=== PATIENT | female | born 1950 | race Caucasian/White ===

== ENCOUNTER 2018-11-12 13:29 | Emergency (ER) | END 2018-11-12 15:29 | disposition home or self-care (01) ==

== ENCOUNTER 2019-04-21 11:40 | Emergency (ER) | payer OTHER ==
[~2019-04-21] VITALS: Ht 160 cm; Wt 77.2 kg
[~2019-04-21 11:40] MED LIST: AMLO5TAB4 PO; ASPI-903 PO; CLON-379 PO; GABA300C16 PO; IBUP-1542 PO; LISI10TA2 PO; METF500T PO; NOVO3I SC; PANT40TA3 PO; TRAM50TA2 PO; TYL500 PO
[2019-04-21 11:44] VITALS: Ht 160 cm; Wt 77.2 kg
[2019-04-21] MEDS ORDERED: SOD CHLORIDE 0.9% 1,000 ML IV STA (12:35)
[2019-04-21] MEDS ORDERED: MAGNESIUM CITRATE 300 ML BTL PO ONE (13:00)
[2019-04-21] MEDS ORDERED: LORA10TA3 PO (13:08)
[2019-04-21] MEDS ORDERED: INSU100I33 SC (13:11)
[2019-04-21] MEDS ORDERED: INSU100C SQ (13:11)
[2019-04-21] MEDS ORDERED: CHOL100062 PO (13:11)
[2019-04-21] MEDS ORDERED: PANT40TA4 PO (13:13)
[2019-04-21] MEDS ORDERED: ATOR20TA38 PO (13:13)
[2019-04-21] MEDS ORDERED: LOSA50TA14 PO (13:13)
[2019-04-21] MEDS ORDERED: AMLO-147 PO (13:14)
[2019-04-21] MEDS ORDERED: METF100010 PO (13:14)
[2019-04-21] MEDS ORDERED: ASPI-817 PO (13:15)
[2019-04-21] MEDS ORDERED: KETOROLAC 15 MG INJ IV STA (13:48)
[2019-04-21] MEDS ORDERED: MAGN296S40 PO (14:31)
[2019-04-21] MEDS ORDERED: GLYC1SUP92 PR (14:31)
--- NOTE | 2019-04-21 14:37 | ERD ---
ER Documentation Chief Complaint Chief Complaint abd pain , constipation , lt arm and leg numbness x 2 weeks HPI This is a 68-year-old female presents with a family member. The patient has a multitude of different complaints. Her main complaint is constipation for approximately 2 weeks. The patient has had intermittent paresthesias of her left arm and left leg for approximately 2 weeks. Patient denies any headache or vision changes, no slurred speech chest pain or shortness of breath. Again her main complaint today is constipation despite the use of Dulcolax she is only able to pass small amounts of stool. No blood in the stool. She denies any weight loss. Mild abdominal cramping with diarrhea that is alleviated with bowel movement. ROS All systems reviewed and are negative except as per history of present illness. Medications Home Meds Active Scripts Magnesium Citrate* (Magnesium Citrate*) 296 Ml Solution, 296 ML PO ONCE PRN for CONSTIPATION, #1 BOTTLE Prov:MAYUR GUNTER MD 04/21/19 Glycerin* (Glycerin (Adult)*) 1 Each Supp.rect, 1 EACH NM DAILY PRN for CONSTIPATION, #10 SUPP.RECT Prov:MAYUR GUNTER MD 04/21/19 Reported Medications Aspirin* (Aspirin* EC) 81 Mg Tablet., 81 MG PO DAILY, TAB 04/21/19 Metformin Hcl* (Metformin Hcl*) 1,000 Mg Tablet, 1000 MG PO WITH BREAKFAST DINNE, #60 TAB 04/21/19 Amlodipine Besylate* (Amlodipine Besylate*) 10 Mg Tablet, 10 MG PO DAILY, #30 TAB 04/21/19 Atorvastatin Calcium* (Atorvastatin Calcium*) 20 Mg Tablet, 20 MG PO QHS, #30 TAB 04/21/19 Losartan Potassium* (Losartan Potassium*) 50 Mg Tablet, 50 MG PO DAILY, TAB 04/21/19 Pantoprazole* (Pantoprazole*) 40 Mg Tablet., 40 MG PO AC BREAKFAST, TAB 04/21/19 Cholecalciferol* (Vitamin D3*) 1,000 Unit Tablet, 1000 UNIT PO DAILY, TAB 04/21/19 Insulin Lispro (Humalog) 100 Unit/1 Ml Cartridge, 14 UNIT SQ QPM, EA 04/21/19 Insulin Glargine,Hum.rec.anlog (Basaglar Kwikpen U-100) 100 Unit/1 Ml Insuln.pen, 14 UNIT SC QAM, EA 04/21/19 Loratadine* (Loratadine*) 10 Mg Tablet, 10 MG PO DAILY, #30 TAB 04/21/19 Discontinued Reported Medications Aspirin* (Aspirin* Chew) 81 Mg Tab.chew, 81 MG PO DAILY, TAB.CHEW 11/12/18 Gabapentin* (Gabapentin*) 300 Mg Capsule, 300 MG PO QHS, #60 CAP 11/12/18 Amlodipine Besylate* (Norvasc*) 5 Mg Tablet, 5 MG PO DAILY, TAB 11/12/18 Discontinued Scripts Ibuprofen* (Motrin*) 600 Mg Tab, 600 MG PO Q6H PRN for PAIN AND OR ELEVATED TEMP, #30 TAB Prov:OLIVERIO LOWE MD 11/12/18 Tramadol HCl (Tramadol HCl) 50 Mg Tablet, 50 MG PO Q4 PRN for PAIN, #20 TAB Prov:MARK ALLISON MD 08/22/16 Acetaminophen* (Tylenol*) 500 Mg Tab, 500 MG PO Q4H PRN for MILD PAIN LEVEL 1-3, #14 TAB Prov:MARK ALLISON MD 12/25/15 Pantoprazole* (Protonix*) 40 Mg Tablet.dr, 40 MG PO DAILY, #30 TAB Prov:OLIVERIO LOWE MD 11/25/15 Insulin Aspart* (Novolog Insulin Pen*) 100 Unit/Ml Soln, 4 UNIT SC AC MEALS for 30 Days Prov:JOANN VASQUEZ NP 08/22/15 Clonidine Hcl* (Clonidine Hcl*) 0.1 Mg Tab, 0.1 MG PO Q4H PRN for sbp>160, #30 TAB Prov:JOANN VASQUEZ NP 08/22/15 Insulin Aspart* (Novolog Insulin Pen*) 100 Unit/Ml Soln, 0 UNIT SC AC MEALS AND BEDTIME for 30 Days Prov:JOANN VASQUEZ NP 08/22/15 Metformin Hcl (Glucophage) 500 Mg Tab, 500 MG PO AC BREAKFAST DINNER for 30 Days Prov:JOANN VASQUEZ NP 08/22/15 Lisinopril* (Lisinopril*) 10 Mg Tablet, 10 MG PO BID for 30 Days, TAB Prov:JOANN VASQUEZ NP 08/22/15 Allergies Allergies: Coded Allergies: No Known Drug Allergies (Verified Allergy, Mild, 5/29/19) PMhx/Soc History of Surgery: No Anesthesia Reaction: No Hx Neurological Disorder: No Hx Respiratory Disorders: No Hx Cardiac Disorders: Yes (HTN) Hx Psychiatric Problems: No Hx Miscellaneous Medical Probl: Yes (DM) Hx Alcohol Use: No Hx Substance Use: No Hx Tobacco Use: No Smoking Status: Never smoker FmHx Family History: diabetes Physical Exam Vitals Vital Signs Date Temp Pulse Resp B/P (MAP) Pulse Ox O2 O2 Flow FiO2 Time Delivery Rate 04/21/19 98.1 79 18 151/79 99 11:44 (103) Physical Exam General: Well developed, well nourished, no acute distress Head: Normocephalic, atraumatic. Eyes: Pupils equally reactive, EOM intact ENT: Moist mucous membranes Neck: Supple, no lymphadenopathy Respiratory: Lungs clear bilaterally, no distress Cardiovascular: RRR, no murmurs, rubs, or gallops Abdominal: Soft, non-tender, non-distended, no peritoneal signs : Deferred MSK: No edema, no unilateral swelling, 5/5 strength Neurologic: Alert and oriented, moving all extremities, normal speech, no focal weakness, no cerebellar signs Skin: No rash Psych: Normal mood Result Diagram: 04/21/19 1242 04/21/19 1242 Results 24 hrs Laboratory Tests Test 04/21/19 12:42 04/21/19 12:46 White Blood Count 7.8 10^3/ul Red Blood Count 4.08 10^6/ul Hemoglobin 11.2 g/dl Hematocrit 34.4 % Mean Corpuscular Volume 84.3 fl Mean Corpuscular Hemoglobin 27.5 pg Mean Corpuscular Hemoglobin Concent 32.6 g/dl Red Cell Distribution Width 14.4 % Platelet Count 282 10^3/UL Mean Platelet Volume 10.1 fl Immature Granulocytes % 0.500 % Neutrophils % 56.2 % Lymphocytes % 33.6 % Monocytes % 8.8 % Eosinophils % 0.4 % Basophils % 0.5 % Nucleated Red Blood Cells % 0.0 /100WBC Immature Granulocytes # 0.040 10^3/ul Neutrophils # 4.4 10^3/ul Lymphocytes # 2.6 10^3/ul Monocytes # 0.7 10^3/ul Eosinophils # 0.0 10^3/ul Basophils # 0.0 10^3/ul Nucleated Red Blood Cells # 0.0 10^3/ul Prothrombin Time 12.5 Sec Prothrombin Time Ratio 1.0 INR International Normalized Ratio 0.92 Activated Partial Thromboplast Time 25.8 Sec Sodium Level 137 mmol/L Potassium Level 4.6 mmol/L Chloride Level 102 mmol/L Carbon Dioxide Level 29 mmol/L Anion Gap 6 Blood Urea Nitrogen 16 mg/dl Creatinine 0.56 mg/dl Est Glomerular Filtrat Rate mL/min > 60 mL/min Glucose Level 180 mg/dl Calcium Level 9.6 mg/dl Creatine Kinase 79 IU/L Troponin I < 0.012 ng/ml Bedside Glucose 177 mg/dL Current Medications Medications Dose Sig/Jensen Start Time Status Last (Trade) Ordered Route PRN Stop Time Admin Dose Reason Admin Sodium 1,000 ml @ Q1H STAT 04/21/19 DC 04/21/19 Chloride 1,000 mls/hr IV 12:35 12:49 04/21/19 13:34 Magnesium 300 ml ONCE ONCE 04/21/19 DC 04/21/19 Citrate PO 13:00 13:20 (Citroma) 04/21/19 13:02 Ketorolac 15 mg ONCE STAT 04/21/19 DC 04/21/19 Tromethamine IV 13:48 13:52 (Toradol) 04/21/19 13:49 Procedures/MDM EKG, MONITORS, & DIAGNOSTIC IMAGING: EKG: I reviewed and interpreted a 12-lead EKG. Rhythm: Normal sinus rhythm ST Changes: No contiguous ST segment elevations T waves: No contiguous T wave inversions Impression: No evidence of acute cardiac ischemia CT brain: No acute process per radiologist read Chest x-ray: I reviewed and interpreted a 1 view of the chest Mediastinum: No enlargement Cardiac silhouette: No cardiomegaly Airspace: Clear lung saavedra bilaterally without evidence of pneumothorax Bones: No evidence of fracture LAB INTERPRETATION: I reviewed the laboratory testing and it shows no evidence of acute process MEDICAL DECISION MAKING: The patient has a multitude of different complaints. Her main complaint is constipation. She has a benign abdominal exam without concern for small bowel obstruction. The patient has intermittent paresthesias but no focal deficit currently. I do not believe this is consistent with a stroke. However laboratory testing and diagnostic imaging including CT brain would be reasonable to rule out mass or other obstructive process. Patient has been provided with reassurance and magnesium citrate here in the emergency room. Abdomen exam is benign and no indication for CT imaging of the abdomen pelvis at this time. The patient's numerous complaints are subacute and can be likely followed by [facility] care physician. ER COURSE: * Laboratory testing and diagnostic imaging are unrevealing. * Patient given magnesium citrate. * At this point the patient can be safely discharged with close primary care follow-up. CONSULTATION: None DISPOSITION PLAN: The patient does not have an identifiable emergent medical condition that warrants inpatient hospitalization at this time. The patient is deemed safe for discharge with outpatient follow-up. We discussed follow up with the patient's primary care doctor within 24 to 48 hours as needed. We also discussed return to the emergency room for worsening symptoms or worsening condition. Outpatient referral: None required Discharge Medications: Magnesium citrate, glycerin suppository Departure Diagnosis: Primary Impression: Constipation Constipation type: unspecified constipation type Qualified Codes: K59.00 - Constipation, unspecified Additional Impression: Paresthesia Condition: Stable Patient Instructions: Constipation (Adult), Paraesthesias Ref[facility] Usted se keys hecho un examen mdico de control que le indica que no est en lorena condicin que requiera tratamiento urgente en el Departamento de Emergencia. Un estudio ms profundo y el tratamiento de drake condicin pueden esperar sin ningn riesgo hasta que usted sea atendida/o en el consultorio de drake mdico o lorena clnica. Es responsabilidad suya arreglar lorena dena para el seguimiento del john. MANEJO DE CONDICIONES NO URGENTES EN EL FUTURO 1) Si usted tiene un mdico de atencin primaria: Usted debera llamar a drake mdico de atencin primaria antes de venir al departamento de emergencia. Despus de las horas de consultorio, drake doctor o drake asociado/a est disponible por telfono. El mdico o enfermero de dora en el servicio telefnico puede asesorarle por riccardo medio para atender el problema, o john contrario se puede programar lorena dena. 2) Si usted no tiene un mdico de atencin primaria: Llame al mdico o clnica de referencia que aparece abajo cierra las horas de consultorio para hacer lorena dena para que le vean. CLINICAS: [facility] [phone] [facility] [phone] [place] [phone] [place] [address] [phone] [place] [address] [phone] [place] [id number] [phone] [facility] () Usted se keys hecho un examen mdico de control que le indica que no est en lorena condicin que requiera tratamiento urgente en el Departamento de Emergencia. Un estudio ms profundo y el tratamiento de drake condicin pueden esperar sin ningn riesgo hasta que usted sea atendida/o en el consultorio de drake mdico o lorena clnica. Es responsabilidad suya arreglar lorena dena para el seguimiento del john. MANEJO DE CONDICIONES NO URGENTES EN EL FUTURO 1) Si usted tiene un mdico de atencin primaria: Usted debera llamar a drake mdico de atencin primaria antes de venir al departamento de emergencia. Despus de las horas de consultorio, drake doctor o drake asociado/a est disponible por telfono. El mdico o enfermero de dora en el servicio telefnico puede asesorarle por riccardo medio para atender el problema, o john contrario se puede programar lorena dena. 2) Si usted no tiene un mdico de atencin primaria: Llame al mdico o condado institucions de referencia que aparece abajo cierra las horas de consultorio para hacer lorena dena para que le vean. SI USTED NO PUEDE PAGAR PARA KELLY UN MEDICO puede ir a: [facility] [address] [place] [address] [facility] [address] [place] [address] [facility] [address] [place] [address] [facility] [address] [place] [address] Additional Instructions: Llame al doctor nombrado abajo (Referral Sources) MAANA y aye lorena DENA PARA DENTRO DE LORENA SEMANA. Dgale a la secretaria que nosotros le instruimos hacer esta dena.Avise o llame si drake condicin se empeora antes de la dena. MAYUR GUNTER MD April 21, 2019 14:37
[2019-04-21 14:49] VITALS: BP 138/82; PULSE 82; RESP 18
== END 2019-04-21 14:50 | disposition home or self-care (01) ==
LOC: E/R 11:40
DX: K59.00 Constipation, unspecified (principal); I10 Essential (primary) hypertension; E11.9 Type 2 diabetes mellitus without complications; R20.2 Paresthesia of skin; Z79.4 Long term (current) use of insulin
CPT/HCPCS: 36415; 70450; 71045; 80048; 82550; 82962; 84484; 85025; 85610; 85730; 93005; 96374; J1885; J7030; Z7502; Z7610

== ENCOUNTER 2019-07-07 17:20 | Inpatient (IN) | payer OTHER ==
[~2019-07-07] VITALS: Ht 152.4 cm; Wt 76.6 kg
[~2019-07-07 17:20] MED LIST changes: +AMLO-147 PO; -AMLO5TAB4 PO; +ASPI-817 PO; -ASPI-903 PO; +ATOR20TA38 PO; +CHOL100062 PO; -CLON-379 PO; +FLUT16SP17 NASAL; -GABA300C16 PO; +GLYC1SUP92 PR; -IBUP-1542 PO; +INSU100C SQ; +INSU100I33 SC; +LEVO250T9 PO; -LISI10TA2 PO; +LORA10TA3 PO; +LOSA50TA14 PO; +MAGN296S40 PO; +METF100010 PO; -METF500T PO; -NOVO3I SC; -PANT40TA3 PO; +PANT40TA4 PO; -TRAM50TA2 PO; -TYL500 PO
[2019-07-07 17:31] VITALS: Ht 152.4 cm; Wt 76.6 kg
[2019-07-07] MEDS ORDERED: BELLADONNA/PHENOBARBITAL TAB PO STA (19:05)
[2019-07-07] MEDS ORDERED: LIDOCAINE/MYLANTA 40 ML BTL PO STA (19:05)
[2019-07-07] MEDS ORDERED: SOD CHLORIDE 0.9% 1,000 ML IV STA (19:05)
[2019-07-07] MEDS ORDERED: ONDANSETRON 4 MG INJ IV STA (19:05)
[2019-07-07] MEDS ORDERED: CEFTRIAXONE 1 GM/50 ML (PMX) 50 ML IVPB ONE (20:00)
[2019-07-07] MEDS ORDERED: NACL 0.9% 3 ML SYG IV SCH (21:30)
[2019-07-07] MEDS ORDERED: MAGNESIUM CITRATE 300 ML BTL PO PRN (21:30)
[2019-07-07] MEDS ORDERED: DEXTROSE 50% 50 ML SYRINGE IV PRN ×2 (21:30)
[2019-07-07] MEDS ORDERED: GLUCOSE GEL 15 GRAM TUBE BUCCAL PRN (21:30)
[2019-07-07] MEDS ORDERED: GLUCOSE GEL 15 GRAM TUBE PO PRN ×2 (21:30)
[2019-07-07] MEDS ORDERED: ONDANSETRON 4 MG INJ IV PRN (21:30)
[2019-07-07] MEDS ORDERED: GLUCAGON 1 MG INJ IM PRN (21:30)
[2019-07-07] MEDS: SOD CHLORIDE 0.9% 1,000 ML IV SCH (22:04)
[2019-07-07] MEDS: ACETAMINOPHEN 325 MG TAB PO PRN (23:27)
[2019-07-07 23:40] VITALS: BP 147/67; PULSE 69; RESP 20
[2019-07-08 01:56] VITALS: BP 111/53; PULSE 66; RESP 18
[2019-07-08] MEDS: ACCU-CHEK XX SCH ×6 (02:00→20:42)
[2019-07-08 08:00] VITALS: BP 117/58; PULSE 64; RESP 18
[2019-07-08] MEDS ORDERED: traMADol 50 MG TAB PO PRN (08:00)
[2019-07-08] MEDS: INSULIN ASPART [NOVOLOG] 3 ML PEN SC SCH ×4 (08:00→20:41)
[2019-07-08] MEDS: PANTOPRAZOLE (EC) 40 MG TAB PO SCH (08:10)
[2019-07-08] MEDS: metFORMIN 500 MG TAB PO SCH ×2 (08:11→17:32)
[2019-07-08] MEDS ORDERED: INSULIN GLARGINE [LANTus] (100 UNITS/ML) SYG SC SCH (09:00)
[2019-07-08] MEDS: INSULIN GLARGINE [LANTus] (100 UNITS/ML) SYG SC SCH (09:31)
[2019-07-08] MEDS: CEFTRIAXONE 1 GM/50 ML (PMX) 50 ML IVPB SCH (09:34)
[2019-07-08] MEDS: AMLODIPINE 10 MG TAB PO SCH (09:41)
[2019-07-08] MEDS: ASPIRIN (EC) 81 MG TAB PO SCH (09:42)
[2019-07-08] MEDS: LOSARTAN 50 MG TAB PO SCH (09:42)
[2019-07-08] MEDS: CHOLECALCIFEROL 1,000 UNIT TAB PO SCH (09:42)
[2019-07-08] MEDS: LORATADINE 10 MG TAB PO SCH (09:43)
[2019-07-08] MEDS: SOD CHLORIDE 0.9% 1,000 ML IV SCH ×2 (11:42→23:07)
[2019-07-08 14:00] VITALS: BP 123/61; PULSE 66; RESP 20
[2019-07-08 20:00] VITALS: BP 121/64; PULSE 64; RESP 18
[2019-07-08] MEDS: ACETAMINOPHEN 325 MG TAB PO PRN (20:41)
[2019-07-08] MEDS ORDERED: ATORVASTATIN 20 MG TAB PO SCH (21:00)
[2019-07-09 02:00] VITALS: BP 128/60; PULSE 76; RESP 18
[2019-07-09] MEDS: PANTOPRAZOLE (EC) 40 MG TAB PO SCH (05:44)
[2019-07-09] MEDS ORDERED: MAGNESIUM HYDROXIDE 30ML CUP PO PRN (06:00)
[2019-07-09 07:21] VITALS: BP 150/68; PULSE 72; RESP 18
[2019-07-09] MEDS: INSULIN ASPART [NOVOLOG] 3 ML PEN SC SCH ×3 (08:00→17:10)
[2019-07-09] MEDS: LOSARTAN 50 MG TAB PO SCH (08:21)
[2019-07-09] MEDS: CEFTRIAXONE 1 GM/50 ML (PMX) 50 ML IVPB SCH (08:21)
[2019-07-09] MEDS: metFORMIN 500 MG TAB PO SCH ×2 (08:21→17:17)
[2019-07-09] MEDS: AMLODIPINE 10 MG TAB PO SCH (08:21)
[2019-07-09] MEDS: LORATADINE 10 MG TAB PO SCH (08:22)
[2019-07-09] MEDS: ASPIRIN (EC) 81 MG TAB PO SCH (08:22)
[2019-07-09] MEDS: CHOLECALCIFEROL 1,000 UNIT TAB PO SCH (08:22)
[2019-07-09] MEDS: ACCU-CHEK XX SCH ×3 (08:23→17:10)
[2019-07-09] MEDS: INSULIN GLARGINE [LANTus] (100 UNITS/ML) SYG SC SCH (08:27)
[2019-07-09 14:06] VITALS: BP 107/55; PULSE 59; RESP 16
== END 2019-07-09 18:21 | disposition home or self-care (01) | DRG 690 ==
LOC: E/R 17:20 → PP2 21:05
PROVIDERS: ADMIT Internal Medicine; ATTEND Internal Medicine
DX: N39.0 Urinary tract infection, site not specified (principal); I10 Essential (primary) hypertension; E11.9 Type 2 diabetes mellitus without complications; R11.2 Nausea with vomiting, unspecified; M1A.9XX0 Chronic gout, unspecified, without tophus (tophi); B96.89 Other specified bacterial agents as the cause of diseases classified elsewhere; Z79.4 Long term (current) use of insulin; Z79.82 Long term (current) use of aspirin
CPT/HCPCS: 36415; 74176; 80048; 80053; 81001; 82962; 83036; 83690; 83735; 84100; 84484; 85025; 87086; 93005; 96361; 96374; 96375; J0696; J1815; J2405; J7030